=== PATIENT | male | born 1985 | race Caucasian/White ===

== ENCOUNTER 2019-05-23 | Emergency (ER) | payer MEDICAID ==
[~2019-05-23] VITALS: Ht 182.9 cm; Wt 145.1 kg
[2019-05-23 00:05] VITALS: BP_SYST 165
--- NOTE | 2019-05-23 00:10 | NUR ---
Patient to ER bed 1 to gown for evaluation. Side rails up. Report given to Akin SHARMA.
--- NOTE | 2019-05-23 00:25 | NUR ---
Pt AAOx4 ambulated into ED c/o redness and swelling to R eyelid x 2 days. Pt denies trauma/blurred vision/pain/discharge. Denies taking medication for pain. No other injuries/complaints per pt/noted. Will continue to monitor.
--- NOTE | 2019-05-23 00:31 | NUR ---
ER Dr. Martinez at bedside examining patient.
[2019-05-23] MEDS ORDERED: AZITHROMYCIN 250 MG TABLET PO ONE (01:15)
[2019-05-23 01:16] VITALS: BP_SYST 150
--- NOTE | 2019-05-23 01:16 | NUR ---
Patient given written and verbal discharge instructions and verbalizes understanding. ER MD Dr. Martinez discussed with patient the results and treatment provided. Patient in stable condition. ID arm band removed. Rx of Zithromax and Polytrim given. Patient educated on pain management and to follow up with PMD. Pain Scale 5/10. Opportunity for questions provided and answered. Medication side effect fact sheet provided.
== END 2019-05-23 01:16 | disposition home or self-care (01) ==
LOC: SED
DX: H01.006 Unspecified blepharitis left eye, unspecified eyelid (principal)
CPT/HCPCS: 99283; Q0144